=== PATIENT | female | born 1975 | race Caucasian/White ===

== ENCOUNTER → 2019-10-13 | Outpatient (CLI) | payer OTHER ==
[~2019-10-13] MED LIST: CHOL400T36 PO; LISI1TAB23 PO; OMEP20CA16 PO
== END | disposition home or self-care (01) ==
LOC: LAB 13:46
PROVIDERS: ATTEND Nurse Anesthetist, Certified Registered
DX: Z01.818 Encounter for other preprocedural examination (principal); Z11.59 Encounter for screening for other viral diseases; Z12.11 Encounter for screening for malignant neoplasm of colon; K21.9 Gastro-esophageal reflux disease without esophagitis
CPT/HCPCS: U0003-CS

== ENCOUNTER → 2019-10-16 | Day surgery (SDC) | payer OTHER ==
[~2019-10-16] MED LIST changes: +IPRATRPIUM/ALBUTEROL 0.5/2.5MG 3 ML NEBU. NEB PRN; +IV RINGERS SOLUTION,LACTATED 1,000 ML IV SCH; +MIDAZOLAM HCL PF 2 MG/2 ML VIAL. IV ONE; +ONDANSETRON PF 4 MG/2 ML VIAL. IV PRN; +PROPOFOL 10,000 MCG/ML (20ML) VIAL IV ONE
[2019-10-16 09:14] LABS: U PREG PATIENT NEGATIVE (NEG)
[2019-10-16 09:20] VITALS: BP 110/71
--- NOTE | 2019-10-17 15:08 | PATHOLOGY ---
[facility] Accession Number: [id number] . 01 Material submitted: . PART A: stomach - GASTRIC BX PART B: stomach - GASTRIC ANTRUM POLYP PART C: esophagus, E-G Junction - IRREG EG JUNCTION BX PART D: hepatic flexure - HEPATIC FLEXURE POLYP . 01 Clinical history: . GERD A. R/O H PYLORI . 02 Diagnosis: A. Gastric biopsy, antrum: - Chronic gastritis, mild, focally active. . B. Gastric biopsies, antral polyp: - Hyperplastic polyp, showing focal mild chronic inflammation. . C. Gastroesophageal biopsies, irregular esophagogastric junction: - Segments of esophagogastric mucosa showing focal edema and mild to moderate chronic inflammation. . D. Colon biopsies, hepatic flexure polyp: - Segments of fecal (vegetable and muscle tissue) material identified. (JPM:aimee; 10/17/2019) [facility] [place] 10/17/2019 0928 Local . 02 Comment: Sections of the gastric antral biopsy show congestion and mild chronic inflammation with focally admixed small numbers of neutrophils. A properly controlled immunoperoxidase stain for Helicobacter is negative for Helicobacter organisms. . Sections of the gastric antral polyp biopsy reveal a hyperplastic polyp showing focal chronic inflammation within the base of the mucosa. There are no adenomatous changes or evidence of malignancy. . Sections of the irregular gastroesophageal junction biopsy reveal segments of esophagogastric mucosa showing focal edema and mild to moderate chronic inflammation. The findings are consistent with reflux. There is no evidence of Durán's change, dysplasia, or malignancy. . Sections of the hepatic flexure biopsy reveal fecal (vegetable and muscle tissue) material. No polyp is identified. (JPM:aimee; 10/17/2019) . Special stain performed: Immunoperoxidase stain for Helicobacter on A1 . 02 Electronically signed: . George Carcamo MD, Pathologist NPI- [id number] . 01 Gross description: . A. The specimen is received in formalin, labeled "Danaeher Sosa, gastric biopsy, R/O H. pylori". Received is a segment of pale gonzales soft tissue measuring 0.3 cm in maximum dimensions. The specimen is submitted entirely in cassette A1. . B. The specimen is received in formalin, labeled "Danae Sosa, gastric antrum polyp". Received are two segments of pale gonzales soft tissue measuring 0.3 cm each in maximum dimensions. The specimen is submitted entirely in cassette B1. . C. The specimen is received in formalin, labeled "Daane Sosa, irregular GE junction". Received is a segment of pale gonzales soft tissue measuring 0.5 cm in maximum dimensions. The specimen is submitted entirely in cassette C1. . D. The specimen is received in formalin, labeled "Danae Sosa, hepatic flexure polyp". Received are multiple fragments of gonzales-brown vegetative material measuring 0.9 x 0.7 x 0.2 cm in aggregate dimensions. The specimen is filtered and entirely submitted in cassette D1. (CAA; 10/16/2019) QAC/QAC 10/16/2019 [facility] Local . 02 Pathologist provided ICD-10: K29.50, K31.7, K20.8 . 02 CPT . 392664, 252276, 191460, [id number], [id number] Specimen Comment: A courtesy copy of this report has been sent to [phone], [phone] Specimen Comment: [id number] Specimen Comment: Report sent to / DR CRAWFORD Specimen Comment: Report sent to Performed at: 01 [facility] [place] [address] [facility] [address], [place] [id number] MD Charles Cespedes MD Phone: [phone] Performed at: 02 [facility] [place] [address] [place], [place] [id number] MD George Carcamo MD Phone: [phone]
== END | disposition home or self-care (01) ==
LOC: SURG 07:02
PROVIDERS: ATTEND Internal Medicine Gastroenterology
DX: Z12.11 Encounter for screening for malignant neoplasm of colon (principal); K63.5 Polyp of colon; K63.89 Other specified diseases of intestine; K31.89 Other diseases of stomach and duodenum; K29.50 Unspecified chronic gastritis without bleeding; K22.8 Other specified diseases of esophagus; K31.7 Polyp of stomach and duodenum; K21.0 Gastro-esophageal reflux disease with esophagitis; I10 Essential (primary) hypertension; Z79.899 Other long term (current) drug therapy; Z80.0 Family history of malignant neoplasm of digestive organs
CPT/HCPCS: 43239; 45385; 81025; 88305; 88342; J2250; J2704; J7120